=== PATIENT | female | born 1950 | race Caucasian/White ===

== ENCOUNTER → 2025-01-10 11:16 | Outpatient (REF) | payer MEDICARE, OTHER, SELFPAY | LOC: CLAB 11:16 | PROVIDERS: ATTENDING PHYSICIAN Urology | DX: N30.20 Other chronic cystitis without hematuria (principal) | CPT/HCPCS: 88112 ==

== ENCOUNTER → 2025-03-02 08:49 | Outpatient (REF) | payer MEDICARE, OTHER, SELFPAY ==
[2025-03-02 11:14] LABS: Hematocrit 41.4 % (37.0-47.0); Hemoglobin 13.8 g/dL (12.0-16.0); Mean Corp Hgb Conc. 33.3 g/dL (33.0-37.0); Mean Corpuscular Volume 99.3 fL (81.0-99.0); Platelet Count 183 10^3/uL (130-400); Red Cell Dist. Width 13.0 % (11.5-14.5)
[2025-03-02 11:39] LABS: Blood Urea Nitrogen 20 mg/dl (7-17); Calcium 9.0 mg/dl (8.4-10.2); Carbon Dioxide 30 mmol/L (22-30); Chloride 105 mmol/L (98-107); Glucose 75 mg/dl (70-99); Potassium 4.3 mmol/L (3.5-5.1); Sodium 137 mmol/L (135-145); eGFR > 60.00
== END ==
LOC: SDSPAT 08:49
PROVIDERS: ATTENDING PHYSICIAN Surgery; FAMILY PHYSICIAN Student in an Organized Health Care Education/Training Program
DX: Z01.818 Encounter for other preprocedural examination (principal)
CPT/HCPCS: 36415; 80048; 85027; 93005

== ENCOUNTER 2025-03-14 05:59 | Day surgery (SDC) | payer MEDICARE, OTHER, SELFPAY ==
[2025-03-02 14:27] VITALS: BMI 24.4
--- NOTE | 2025-03-02 15:53 | PTCARENOTE ---
Abnormal ECG done 03/02/25, reviewed by Dr Piedra, no further intervention needed.
[2025-03-14] VITALS (9 sets, daily range): BP systolic 126–152; BP diastolic 61–79; BMI 24.4
[2025-03-14] MEDS: NORMOSOL-R/PLASMALYTE-A 1000 IV (09:15)
[2025-03-14] MEDS: CYSVIEW KIT 100 MG INTRAVES (09:40)
[2025-03-14] MEDS: DETROL LA 4 MG PO (11:39)
== END 2025-03-14 12:53 | disposition home or self-care (01) ==
LOC: SDS 05:59
PROVIDERS: ATTENDING PHYSICIAN Surgery
DX: N32.9 Bladder disorder, unspecified (principal); Z87.440 Personal history of urinary (tract) infections
CPT/HCPCS: 52224; C9738; 88305; A9589